=== PATIENT | male | born 1945 | race Caucasian/White ===

== ENCOUNTER 2018-03-08 10:13 | Inpatient (IN) | payer MEDICAID ==
[~2018-03-08] VITALS: Ht 167.6 cm; Wt 75.0 kg
[2018-03-08] MEDS ORDERED: ONDANSETRON 4 MG INJ IV STA (10:41)
[2018-03-08] MEDS ORDERED: VANCOMYCIN 1 GM (PMX) 250 ML IVPB STA (10:41)
[2018-03-08] MEDS ORDERED: SODIUM CHLORIDE 0.9% 1L BAG IV* STA (10:41)
[2018-03-08] MEDS ORDERED: PIPER-TAZO 3.375 GM IV (PMX) 100 ML IVPB STA (10:41)
[2018-03-08] MEDS ORDERED: morphine 4 MG/ML VIAL IV STA (10:41)
--- NOTE | 2018-03-08 13:12 | ERD ---
ER Documentation Chief Complaint Chief Complaint cough, ap few days HPI Patient is a 72-year-old male with hypertension who presents with foot infection. The patient has a wound to his right foot on the dorsum which started on Tuesday. It started as a blister from his shoe but has gotten worse. It is now draining pus. He also developed abdominal pain recently. He has had a fever of 101 at home. He has had no recent antibiotics. Upon review of old medical records this is the patient's first visit to the emergency department. ROS All systems reviewed and are negative except as per history of present illness. Medications Home Meds No Active Prescriptions or Reported Meds Allergies Allergies: Coded Allergies: No Known Allergy (Unverified , 03/08/18) PMhx/Soc Medical and Surgical Hx: pt denies Surgical Hx History of Surgery: No Anesthesia Reaction: No Hx Neurological Disorder: No Hx Respiratory Disorders: No Hx Cardiac Disorders: Yes (HTN) Hx Psychiatric Problems: No Hx Miscellaneous Medical Probl: No Hx Alcohol Use: Yes Hx Substance Use: No Hx Tobacco Use: No Smoking Status: Never smoker FmHx Family History: No diabetes Physical Exam Vitals Vital Signs Date Temp Pulse Resp B/P (MAP) Pulse Ox O2 O2 Flow FiO2 Time Delivery Rate 03/08/18 67 18 158/103 100 Room Air 12:56 (121) 03/08/18 98.1 97 18 157/99 99 10:15 (118) Physical Exam Const: No acute distress Head: Atraumatic Eyes: Normal Conjunctiva ENT: Normal External Ears, Nose and Mouth. Neck: Full range of motion. No meningismus. Resp: Clear to auscultation bilaterally Cardio: Regular rate and rhythm, no murmurs Abd: Soft, non tender, non distended. Normal bowel sounds Skin: 2 x 2 centimeter abscess to the right dorsum of the foot with surrounding cellulitis, the wound is already open and draining Back: No midline or flank tenderness Ext: No cyanosis, or edema Neur: Awake and alert Psych: Normal Mood and Affect Result Diagram: 03/08/18 1104 03/08/18 1104 Results 24 hrs Laboratory Tests Test 03/08/18 11:01 03/08/18 11:04 03/08/18 13:10 POC Venous Lactate 1.6 mmol/L 1.3 mmol/L White Blood Count 5.9 10^3/ul Red Blood Count 5.64 10^6/ul Hemoglobin 10.6 g/dl Hematocrit 34.5 % Mean Corpuscular Volume 61.2 fl Mean Corpuscular Hemoglobin 18.8 pg Mean Corpuscular Hemoglobin Concent 30.7 g/dl Red Cell Distribution Width 16.2 % Platelet Count 322 10^3/UL Mean Platelet Volume 10.3 fl Immature Granulocytes % 0.500 % Neutrophils % 46.8 % Lymphocytes % 24.6 % Monocytes % 17.5 % Eosinophils % 9.8 % Basophils % 0.8 % Nucleated Red Blood Cells % 0.0 /100WBC Immature Granulocytes # 0.030 10^3/ul Neutrophils # 2.8 10^3/ul Lymphocytes # 1.5 10^3/ul Monocytes # 1.0 10^3/ul Eosinophils # 0.6 10^3/ul Basophils # 0.1 10^3/ul Nucleated Red Blood Cells # 0.0 10^3/ul Prothrombin Time 13.3 Sec Prothrombin Time Ratio 1.0 INR International Normalized Ratio 1.00 Activated Partial Thromboplast Time 31.0 Sec Urine Color YELLOW Urine Clarity CLEAR Urine pH 6.0 Urine Specific Cook 1.012 Urine Ketones NEGATIVE mg/dL Urine Nitrite NEGATIVE mg/dL Urine Bilirubin NEGATIVE mg/dL Urine Urobilinogen NEGATIVE mg/dL Urine Leukocyte Esterase NEGATIVE [place]/ul Urine Microscopic RBC 0 /HPF Urine Microscopic WBC 0 /HPF Urine Hemoglobin NEGATIVE mg/dL Urine Glucose NEGATIVE mg/dL Urine Total Protein 2+ mg/dl Sodium Level 138 mmol/L Potassium Level 3.9 mmol/L Chloride Level 105 mmol/L Carbon Dioxide Level 24 mmol/L Anion Gap 9 Blood Urea Nitrogen 22 mg/dl Creatinine 1.94 mg/dl Est Glomerular Filtrat Rate mL/min mL/min Glucose Level 92 mg/dl Calcium Level 8.3 mg/dl Total Bilirubin 0.1 mg/dl Direct Bilirubin 0.00 mg/dl Indirect Bilirubin 0.1 mg/dl Aspartate Amino Transf (AST/SGOT) 31 IU/L Alanine Aminotransferase (ALT/SGPT) 26 IU/L Alkaline Phosphatase 72 IU/L Troponin I < 0.012 ng/ml Total Protein 6.8 g/dl Albumin 3.7 g/dl Globulin 3.10 g/dl Albumin/Globulin Ratio 1.19 Lipase 124 U/L Current Medications Medications Dose Sig/Lee Start Time Status Last (Trade) Ordered Route PRN Stop Time Admin Dose Reason Admin Sodium 2,050 ml BOLUS OVER 2 03/08/18 DC 03/08/18 Chloride HOURS STAT 10:41 03/08/18 11:18 (NS) IV* 10:42 Morphine 4 mg ONCE STAT 03/08/18 DC Sulfate IV 10:41 03/08/18 (morphine) 10:42 Ondansetron 4 mg ONCE STAT 03/08/18 DC 03/08/18 HCl (Zofran IV 10:41 03/08/18 11:18 Inj) 10:42 Vancomycin 250 ml @ ONCE STAT 03/08/18 DC 03/08/18 HCl 125 mls/hr IVPB 10:41 03/08/18 12:22 12:40 Piperacillin 100 ml @ ONCE STAT 03/08/18 DC 03/08/18 Sod/ 200 mls/hr IVPB 10:41 03/08/18 11:18 Tazobactam 11:10 Sod Ondansetron 4 mg BRIDGE ORDER 03/08/18 HCl (Zofran PRN IV 13:30 Inj) NAUSEA AND/OR 03/09/18 13:29 VOMITING 650 mg ER BRIDGE 03/08/18 Acetaminophen PRN PO MILD 13:30 (Tylenol PAIN(1-3)OR 03/09/18 13:29 Tab) ELEVATED TEMP Procedures/MDM Chest x-ray read by radiology. EKG read by me: Rate/Rhythm: Regular rate and rhythm at a normal rate Intervals: Normal Impression: No evidence of ischemia or arrhythmia Patient is a 72-year-old male who presents with a right foot infection. There is abscess which has already opened and is draining and does not require incision and drainage at this time. The patient has surrounding erythema and was given vancomycin and Zosyn. The patient will be admitted to the care of Dr. Elizabeth from the panel team to a medical surgical bed. Departure Diagnosis: Primary Impression: Cellulitis Site of cellulitis: extremity Site of cellulitis of extremity: lower extremity Laterality: right Qualified Codes: L03.115 - Cellulitis of right lower limb Additional Impression: Abdominal abscess Condition: AMERICA Morales MD Mar 08, 2018 13:12
[2018-03-08] MEDS ORDERED: ONDANSETRON 4 MG INJ IV PRN ×3 (13:30→17:00)
[2018-03-08] MEDS ORDERED: ACETAMINOPHEN 325 MG TAB PO PRN ×2 (13:30→17:00)
[2018-03-08] MEDS ORDERED: NACL 0.9% 3 ML SYG IV SCH ×2 (15:30→17:00)
[2018-03-08] MEDS ORDERED: HYDROCODONE/APAP (5/325) TAB PO PRN ×2 (15:30→17:00)
[2018-03-08] MEDS ORDERED: LABETALOL 100 MG TAB PO ONE (16:30)
[2018-03-08] MEDS: SOD CHLORIDE 0.9% 1,000 ML IV SCH (16:51)
--- NOTE | 2018-03-08 17:10 | HP ---
Date/Time of Note Date/Time of Note DATE: 03/08/18 TIME: 16:55 Assessment/Plan VTE Prophylaxis SCD applied (from Nsg): Yes Pharmacological prophylaxis: NA/contraindicated Pharm contraindication: low risk/ambulating Lines/Catheters IV Catheter Type (from Nrsg): Peripheral IV Assessment/Plan Assessment/Plan 72 yo man history of HTN presents with R foot ulcer, fever, and CHF symptoms. #Foot ulcer #Sepsis - Surrounding skin appears clean. However this is likely source of fevers. - Will start zosyn IV for now - Blood cultures. will f/u - Podiatry consulted - Admit to med/surg #HTN - Unknown home meds. - Will start beta tay for now (No ACEi in case of WES, CCB will take too long) #Renal failure - Unknown if WES or CKD - Will check renal ultrasound - Will trend levels tomorrow. #CHF - Reports paroxysmal nocturnal dyspnea. Vascular congestion on CXR - May be from longstanding HTN - Will get TTE. DVT: SCDs GI: None Result Diagram: 03/08/18 1104 03/08/18 1104 HPI/ROS Admit Date/Time Admit Date/Time Mar 08, 2018 Hx of Present Illness Mr. Walker is a 72 yo [place]-speaking man with history of HTN who presents with fever and foot ulcer. History taken from son at bedside. Also present was his daughter in law and non- Mohawk speaking . He was in his usual state of health until about 3-4 days ago when he developed a R foot blister. This gradually enlarged and ruptured creating a large open wound yesterday. He first presented to an urgent care yesterday where he was found to have a fever to 101. He was instructed to go to the ED, but was reluctant because he doesn't like hospitals. His son talked him into coming today. The patient recently traveled to the [facility] region in [facility] where visited family. [place]. He was there for 2 months and returned on 02/21. On return he had mild leg edema which family attributed to the long plane flight; during this time family is sure there was no blister, ulcer, or other lesions on the feet. For the past several days the patient also has had dry cough and episodes of nighttime awakening and gasping for breath. In the ED he was afebrile, vital signs stable. ROS Denies weight loss, anorexia, night sweats, headache, vision changes, dysphagia, hoarseness, productive cough, hemoptysis, MANNING, chest pain/pressure/palpitations, nausea, vomiting, diarrhea, constipation, dysuria, hematuria, muscle cramping. PMH/Family/Social Past Medical History HTN. Takes a single daily medication, unknown name. Medications Current Medications Sodium Chloride 1,000 ml @ 100 mls/hr Q10H IV Last administered on 03/08/18at 16:51; Admin Dose 100 MLS/HR; Start 03/08/18 at 15:20 IV Flush (NS 3 ml) 3 ml PER PROTOCOL IV ; Start 03/08/18 at 15:30 Ondansetron HCl (Zofran Inj) 4 mg Q6H PRN IV NAUSEA AND/OR VOMITING; Start 03/08/18 at 15:30 Acetaminophen (Tylenol Tab) 650 mg Q6H PRN PO PAIN LEVEL 1-3 OR FEVER; Start 03/08/18 at 15:30 Acetaminophen/ Hydrocodone Bitart ([place] (5/325)) 1 tab Q6H PRN PO MODERATE PAIN LEVEL 4-6; Start 03/08/18 at 15:30 Heparin Sodium (Porcine) (Heparin (5000 Units/1ml)) 5,000 unit Q8 SC ; Start 03/08/18 at 22:00 Piperacillin Sod/ Tazobactam Sod 100 ml @ 200 mls/hr Q8 IVPB ; Start 03/08/18 at 17:00 Coded Allergies: No Known Allergy (Unverified , 03/08/18) Past Surgical History Denies Social History Patient is a citizen and lives in [place]. He is Sikhism; [place] speaking. Vegetarian only. Alcohol Use: none Smoking Status: Never smoker Drug Use: none Exam/Review of Systems Vital Signs Vitals Vital Signs Date Temp Pulse Resp B/P (MAP) Pulse Ox O2 O2 Flow FiO2 Time Delivery Rate 03/08/18 79 169/117 100 Room Air 15:43 (134) 03/08/18 18 12:56 03/08/18 98.1 10:15 Exam Exam Gen: Well developed elderly man in no acute distress. Eyes: PEERL, no icterus HEENT: Clear oropharynx, no ulcers, moist mucous membranes Neck: No JVD. No Lymphadenopathy Card: Regular rate and rhythm, no murmurs Pulm: Clear to auscultation bilaterally. Abd: Soft, nontender, nondistended. Ext: No edema. Skin: R foot has a deep ulcer on the dorsum packed with gauze. Edges appear clean. EDITH ASHRAF MD Mar 08, 2018 17:05
[2018-03-08 18:00] VITALS: Ht 167.6 cm; Wt 75.0 kg
[2018-03-08] MEDS: PIPER-TAZO 3.375 GM IV (PMX) 100 ML IVPB SCH ×2 (18:15→22:00)
[2018-03-08] MEDS ORDERED: LIDOCAINE 1% (MPF) 30 ML INJ INJ ONE (18:30)
[2018-03-08 19:49] VITALS: BP 128/78; PULSE 83; RESP 18
[2018-03-08] MEDS: HEPARIN 5,000 UNIT/1 ML VIAL SC SCH (21:57)
[2018-03-09] MEDS: SOD CHLORIDE 0.9% 1,000 ML IV SCH ×2 (01:45→11:44)
[2018-03-09 02:00] VITALS: BP 155/87; PULSE 63; RESP 18
[2018-03-09] MEDS: HEPARIN 5,000 UNIT/1 ML VIAL SC SCH ×3 (05:21→21:48)
[2018-03-09] MEDS: PIPER-TAZO 3.375 GM IV (PMX) 100 ML IVPB SCH ×3 (05:22→21:28)
[2018-03-09 07:18] VITALS: BP 160/94; PULSE 70; RESP 16
[2018-03-09] MEDS ORDERED: ENOXAPARIN 40 MG/0.4 ML SYG SC SCH (09:00)
[2018-03-09] MEDS: LABETALOL 100 MG TAB PO SCH ×2 (11:41→20:05)
--- NOTE | 2018-03-09 13:06 | CONS ---
DATE OF ADMISSION: 03/08/2018 DATE OF CONSULTATION: 03/09/2018 TYPE OF CONSULTATION: Nephrology. REASON FOR CONSULTATION: Acute kidney injury. HISTORY OF PRESENT ILLNESS: This is a 72-year-old male with a past medical history of hypertension w ho presents to [facility] due to right foot wound. The patient stated that he deve loped a blister in his right foot but over the past several days started draining pus. The patient a lso complained of abdominal pain. At home, the patient had a fever of 101. As a result, he came int o the emergency room for evaluation. Upon arrival, the patient had laboratory data drawn, which show ed a white count of 5.9, BUN of 12 and creatinine of 1.94. The patient was started on IV antibiotics and admitted to med/surg for further evaluation and wound care. In terms of patient's renal history, the patient denies having any prior history of chronic kidney di sease, acute kidney injury. The patient has not seen a physician in a long time per family. The pat ient does take not blood pressure medications. No other medications including NSAIDs per patient. PAST MEDICAL HISTORY: History of hypertension. SOCIAL HISTORY: Does not drink, smoke or do drugs. MEDICATIONS: Have been reviewed. PAST SURGICAL HISTORY: Denies. FAMILY HISTORY: No family history of kidney disease. ALLERGIES: NONE. REVIEW OF SYSTEMS: A 14-point review of systems conducted. Pertinent positives stated in HPI, other arrieta negative. PHYSICAL EXAMINATION: VITAL SIGNS: Blood pressure is 160/94, respirations 16, pulse 70, temperature 98.1. HEENT: Head is normocephalic. NECK: Supple. HEART: Regular rate. LUNGS: Show diminished breath sounds at the base. ABDOMEN: Soft, nontender to palpation without rebound or guarding. EXTREMITIES: Negative for clubbing, cyanosis. No edema. MUSCULOSKELETAL: The patient has noted right foot deep ulcer in the dorsum with gauze. NEUROLOGIC: No focal deficits. LABORATORY DATA: Show sodium 142, BUN 19, creatinine 1.83. White count 5.7, hemoglobin 9.3. The pa lili's cultures have been reviewed. IMAGING STUDIES: Renal ultrasound shows severe right-sided hydronephrosis and cortical thinning, non -obstructing calculi in left kidney and increased echogenicity in the cortex of the left kidney. ASSESSMENT AND PLAN: This is a 72-year-old male who presents with: 1. Nonoliguric acute kidney injury on top of chronic kidney disease with unknown baseline creatinine . Etiology of acute kidney injury is likely secondary to obstructive uropathy. The patient's renal ultrasound shows severe right-sided hydronephrosis with unclear etiology. Plan at this point would b e to check a CT scan of abdomen and pelvis with stone protocol. We would recommend a urologic evalua tion. We will deescalate IV fluids as this patient is volume replete in clinical examination. We wi ll otherwise continue current treatment plan, supportive care, renally dose all meds. 2. Chronic kidney disease with unknown baseline creatinine. The patient's renal ultrasound shows in creased echogenicity. Underlying cause may be due to longstanding obstructive uropathy, hypertensive nephrosclerosis. The patient is currently in acute kidney injury as stated above. Continue current treatment plan. Otherwise, continue disease factor modification. 3. Right-sided hydronephrosis. Etiology is unclear. Follow up CT scan. Follow up with urology. 4. Hypertension. Plan to deescalate IV fluids. Continue blood pressure regimen. Defer any JOE inh ibitor or ARBs at this time. 5. Pulmonary vascular congestion, questionable congestive heart failure. Plan is to stop IV fluids. Consider 2D echo. Monitor closely. 6. Sepsis secondary to right foot ulcer. Continue antibiotic regimen. Continue wound care. Follow up cultures. Thank you, Dr. Elizabeth, for this interesting consult. It will be a pleasure to follow the patient with you throughout the hospital course. Dictated By: MIYA DOBBS/JOSEFINA Conf#: [id number] DID#: [id number] CC: MARIE RAMIREZ DPM; EDITH ELIZABETH MD;*End*
--- NOTE | 2018-03-09 14:20 | RADRPT ---
Echocardiogram Report Patient Name: CARON WU Gender: Male Date: 1945 Study Date: 09-Mar-2018 Elderly Sitter: Frandy Rosales [facility] Location: 2268 Ref. Physician: EDITH ASHRAF Quality: Good Procedures: Transthoracic echocardiogram with complete 2D, M-Mode, and doppler examination. Indications: PND, cardiomegaly on CXR. 2D/M Mode Doppler Measurement Value Normal Ranges Measurement Value Normal Ranges LVIDd 2D 4.3 3.5 - 5.6 cm AV Peak Alvaro 1.6 m/sec LVIDs 2D 2.8 2.1 - 4.1 cm AV Peak PG 11.0 mmHg FS 2D 34.3 % AI Peak PG 97.0 mmHg LVPWd 2D 1.1 0.6 - 1.1 cm AI Peak Alvaro 4.9 m/sec IVSd 2D 1.5 0.6 - 1.1 cm AI PHT 548.0 msec IVS/LVPW 2D 1.4 LVOT Peak Alvaro 1.2 m/sec AoR Diam 2D 3.4 2.0 - 3.7 cm LVOT Peak PG 6.0 mmHg LA/Ao 2D 1 0 - 1 MV E Peak Alvaro 0.8 m/sec EDV 2D 81.7 cm3 MV A Peak Alvaro 0.9 m/sec ESV 2D 23.1 cm3 MV E/A 0.9 LA Dimen 2D 4.1 2.3 - 4.0 cm MV Decel Time 204 msec MV E/A 0.9 TR Peak Alvaro 3.5 m/sec TR Peak PG 48.0 mmHg RVSP 51.0 mmHg RA Pressure 3.0 Findings Left Ventricle: Normal left ventricular systolic function. Normal left ventricular cavity size. Moderate asymmetric septal hypertrophy. Ejection fraction is visually estimated at 65 %. Tissue Doppler/Mitral Doppler indices are consistent with impaired relaxation (Stage I diastolic dysfunction). Right Ventricle: Normal right ventricular size. Normal right ventricular systolic function. Left Atrium: There is mild enlargement of left atrium. Right Atrium: The right atrium is normal in size. Mitral Valve: Normal appearance and function of the mitral valve with trace physiologic regurgitation. Aortic Valve: No hemodynamically significant aortic stenosis by doppler. Aortic cusps appear mildly calcified. Mild aortic valve regurgitation. Tricuspid Valve: Normal appearance of the tricuspid valve. Estimated peak PA systolic pressure 51 mmHg. There is mild tricuspid regurgitation. Pulmonic Valve: Normal pulmonic valve appearance. Pericardium: Normal pericardium with no significant pericardial effusion. Aorta: Normal aortic root. IVC: Normal size and normal respiratory collapse consistent with normal right atrial pressure. Conclusions Basal septal hypertrophy with normal systolic function. Grade 1 diastolic dysfunction. Trace aortic regurgitation. Mild tricuspid regurgitation with moderate pulmonary hypertension. Trace mitral regurgitation. Electronically Signed By: Katiuska Cintron 09-Mar-2018 14:18:38 -0800 Patient Name: CARON WU Study Date: 09-Mar-2018 [id number]
--- NOTE | 2018-03-09 14:23 | PN ---
Date/Time of Note Date/Time of Note DATE: 03/09/18 TIME: 14:19 Assessment/Plan VTE Prophylaxis Risk score (from Ns)>0 risk: 2 SCD applied (from Ns): Yes Pharmacological prophylaxis: heparin Lines/Catheters IV Catheter Type (from Nrs): Peripheral IV Assessment/Plan Assessment/Plan 72 yo man history of HTN presents with R foot ulcer, fever, and CHF symptoms. #Foot ulcer #Sepsis - Cont zosyn IV for now - Blood cultures, will f/u - Podiatry consulted, s/p I&D on 03/09, will f/u wound cultures. #HTN - Unknown home meds. - Will start beta tay and CCB inpatient. #Obstructive uropathy - Cr elevated, imaging shows severe R hydronephrosis from obstructing stone. - Consulted Dr. Haas with urology. #CHF - Reports paroxysmal nocturnal dyspnea. Vascular congestion on CXR - May be from longstanding HTN - TTE pending read. DVT: SCDs GI: None Result Diagram: 03/09/1838 03/09/1838 Results 24hrs Laboratory Tests Test 03/08/18 15:33 03/09/18 05:38 Hemoglobin A1c 5.8 5.6 Lactic Acid Level 1.1 Iron Level 30 L Total Iron Binding Capacity 267 Percent Iron Saturation 11 L Ferritin 60.0 B-Type Natriuretic Peptide 184 H White Blood Count 5.7 Red Blood Count 4.91 Hemoglobin 9.3 L Hematocrit 30.1 L Mean Corpuscular Volume 61.3 L Mean Corpuscular Hemoglobin 18.9 L Mean Corpuscular Hemoglobin Concent 30.9 L Red Cell Distribution Width 16.6 H Platelet Count 304 Mean Platelet Volume 11.0 H Immature Granulocytes % 0.500 H Neutrophils % 56.0 Lymphocytes % 23.4 Monocytes % 9.1 Eosinophils % 10.1 H Basophils % 0.9 Nucleated Red Blood Cells % 0.0 Immature Granulocytes # 0.030 Neutrophils # 3.2 Lymphocytes # 1.3 Monocytes # 0.5 Eosinophils # 0.6 H Basophils # 0.1 Nucleated Red Blood Cells # 0.0 Sodium Level 142 Potassium Level 4.4 Chloride Level 110 Carbon Dioxide Level 22 Anion Gap 10 Blood Urea Nitrogen 19 Creatinine 1.83 H Est Glomerular Filtrat Rate mL/min Glucose Level 88 Calcium Level 7.4 L Phosphorus Level 4.1 Magnesium Level 1.8 Total Bilirubin 0.1 L Direct Bilirubin 0.00 Indirect Bilirubin 0.1 Aspartate Amino Transf (AST/SGOT) 25 Alanine Aminotransferase (ALT/SGPT) 23 Alkaline Phosphatase 55 Total Protein 5.7 #L Albumin 2.9 L Globulin 2.80 Albumin/Globulin Ratio 1.03 Subjective 24 Hr Interval Summary Free Text/Dictation Dr Coronado did I&D of ulcer yesterday. Patient is sitting up in bed well appearing. Ambulating, tolerating diet. Exam/Review of Systems Vital Signs Vitals Vital Signs Date Temp Pulse Resp B/P (MAP) Pulse Ox O2 O2 Flow FiO2 Time Delivery Rate 03/09/18 98.1 70 16 160/94 97 Room Air 07:18 (116) Intake and Output 03/08/18 03/08/18 03/09/18 1515:00 23:00 07:00 IntakeIntake Total 890 ml 1500 ml OutputOutput Total 120 ml BalanceBalance 770 ml 1500 ml Exam Gen: Well developed elderly man in no acute distress. Eyes: PEERL, no icterus HEENT: Clear oropharynx, no ulcers, moist mucous membranes Neck: No JVD. No Lymphadenopathy Card: Regular rate and rhythm, no murmurs Pulm: Clear to auscultation bilaterally. Abd: Soft, nontender, nondistended. Ext: No edema. Skin: R foot bandaged. Medications Medications Current Medications IV Flush (NS 3 ml) 3 ml PER PROTOCOL IV ; Start 03/08/18 at 15:30 Ondansetron HCl (Zofran Inj) 4 mg Q6H PRN IV NAUSEA AND/OR VOMITING; Start 03/08/18 at 15:30 Acetaminophen (Tylenol Tab) 650 mg Q6H PRN PO PAIN LEVEL 1-3 OR FEVER; Start 03/08/18 at 15:30 Acetaminophen/ Hydrocodone Bitart ([place] (5/325)) 1 tab Q6H PRN PO MODERATE PAIN LEVEL 4-6; Start 03/08/18 at 15:30 Heparin Sodium (Porcine) (Heparin (5000 Units/1ml)) 5,000 unit Q8 SC Last administered on 03/09/18at 05:21; Admin Dose 5,000 UNIT; Start 03/08/18 at 22:00 Labetalol HCl (Normodyne) 100 mg BID PO Last administered on 03/09/18at 11:41; Admin Dose 100 MG; Start 03/09/18 at 08:00 Piperacillin Sod/ Tazobactam Sod 100 ml @ 200 mls/hr Q8 IVPB Last administered on 03/09/18at 05:22; Admin Dose 200 MLS/HR; Start 03/09/18 at 06:00 EDITH ASHRAF MD Mar 09, 2018 14:23
[2018-03-09 14:50] VITALS: BP 155/88; PULSE 70; RESP 17
[2018-03-09] MEDS: AMLODIPINE 10 MG TAB PO SCH (14:51)
[2018-03-09 19:17] VITALS: BP 157/98; PULSE 82; RESP 18
--- NOTE | 2018-03-09 20:34 | CONS ---
Date/Time of Note Date/Time of Note DATE: 03/09/18 TIME: 20:27 Assessment/Plan Assessment/Plan Assessment/Plan 72-year-old male presented to the emergency room with abdominal pain and foot blister. He underwent a CT scan of the abdomen and pelvis and that showed right hydronephrosis secondary to a large upper right ureteral stone. A urological consultation was therefore requested. The patient himself does not speak any Latvian. However his nurse for elizabeth does speak his language and she helps translate. He denies any prior history of kidney stones and has not had any surgical intervention before. I did review the CT scan and basically the right kidney is hydronephrotic and has very little if any parenchyma indicating that it has been obstructed for a long time by the stone and probably has no function to save. Recommendation is to leave the kidney alone as well as a stone as the kidney has very little if any function. Result Diagram: 03/09/18 0538 03/09/18 0538 Results 24hrs Laboratory Tests Test 03/09/18 05:38 03/09/18 17:00 White Blood Count 5.7 Red Blood Count 4.91 Hemoglobin 9.3 L Hematocrit 30.1 L Mean Corpuscular Volume 61.3 L Mean Corpuscular Hemoglobin 18.9 L Mean Corpuscular Hemoglobin Concent 30.9 L Red Cell Distribution Width 16.6 H Platelet Count 304 Mean Platelet Volume 11.0 H Immature Granulocytes % 0.500 H Neutrophils % 56.0 Lymphocytes % 23.4 Monocytes % 9.1 Eosinophils % 10.1 H Basophils % 0.9 Nucleated Red Blood Cells % 0.0 Immature Granulocytes # 0.030 Neutrophils # 3.2 Lymphocytes # 1.3 Monocytes # 0.5 Eosinophils # 0.6 H Basophils # 0.1 Nucleated Red Blood Cells # 0.0 Sodium Level 142 Potassium Level 4.4 Chloride Level 110 Carbon Dioxide Level 22 Anion Gap 10 Blood Urea Nitrogen 19 Creatinine 1.83 H Est Glomerular Filtrat Rate mL/min Glucose Level 88 Hemoglobin A1c 5.6 Calcium Level 7.4 L Phosphorus Level 4.1 Magnesium Level 1.8 Total Bilirubin 0.1 L Direct Bilirubin 0.00 Indirect Bilirubin 0.1 Aspartate Amino Transf (AST/SGOT) 25 Alanine Aminotransferase (ALT/SGPT) 23 Alkaline Phosphatase 55 Total Protein 5.7 #L Albumin 2.9 L Globulin 2.80 Albumin/Globulin Ratio 1.03 Urine Random Creatinine 41.08 Urine Random Sodium 129 H Urine Total Protein 34.0 H Consultation Date/Type/Reason Admit Date/Time Mar 08, 2018 Date of Consultation: Mar 09, 2018 Type of Consult Urology Reason for Consultation Right hydronephrosis secondary to right upper ureteral stone. Requesting Provider: EDITH ASHRAF MD Hx of Present Illness 72-year-old male presented to the emergency room with abdominal pain and foot blister. He underwent a CT scan of the abdomen and pelvis and that showed right hydronephrosis secondary to a large upper right ureteral stone. A urological consultation was therefore requested. Constitutional: other (History of fever prior to admission) Eyes: no complaints ENT: no complaints Respiratory: no complaints Cardiovascular: No chest pain Gastrointestinal: pain (Generalized) Genitourinary: no complaints Musculoskeletal: no complaints Skin: other (Lower extremity blisters) Past Medical History Medical History: hypertension Medications Current Medications IV Flush (NS 3 ml) 3 ml PER PROTOCOL IV ; Start 03/08/18 at 15:30 Ondansetron HCl (Zofran Inj) 4 mg Q6H PRN IV NAUSEA AND/OR VOMITING; Start 03/08/18 at 15:30 Acetaminophen (Tylenol Tab) 650 mg Q6H PRN PO PAIN LEVEL 1-3 OR FEVER; Start 03/08/18 at 15:30 Acetaminophen/ Hydrocodone Bitart ([place] (5/325)) 1 tab Q6H PRN PO MODERATE PAIN LEVEL 4-6; Start 03/08/18 at 15:30 Heparin Sodium (Porcine) (Heparin (5000 Units/1ml)) 5,000 unit Q8 SC Last administered on 03/09/18at 14:41; Admin Dose 5,000 UNIT; Start 03/08/18 at 22:00 Labetalol HCl (Normodyne) 100 mg BID PO Last administered on 03/09/18at 20:05; Admin Dose 100 MG; Start 03/09/18 at 08:00 Piperacillin Sod/ Tazobactam Sod 100 ml @ 200 mls/hr Q8 IVPB Last administered on 03/09/18at 14:28; Admin Dose 200 MLS/HR; Start 03/09/18 at 06:00 Amlodipine Besylate (Norvasc) 10 mg DAILY PO Last administered on 03/09/18at 14:51; Admin Dose 10 MG; Start 03/09/18 at 14:30 Allergies: Coded Allergies: No Known Allergy (Unverified , 03/08/18) Social History Alcohol Use: other (Used to drink) Smoking Status: Never smoker Drug Use: none Exam/Review of Systems Vital Signs Vitals Vital Signs Date Temp Pulse Resp B/P (MAP) Pulse Ox O2 O2 Flow FiO2 Time Delivery Rate 03/09/18 98.1 82 18 157/98 99 19:17 (117) 03/09/18 Room Air 14:50 Intake and Output 03/08/18 03/08/18 03/09/18 1515:00 23:00 07:00 IntakeIntake Total 890 ml 1500 ml OutputOutput Total 120 ml BalanceBalance 770 ml 1500 ml Exam Constitutional: alert Psych: no complaints Head: normocephalic Eyes: nl conjunctiva ENMT: nl external ears & nose Neck: supple Respiratory: normal air movement Cardiovascular: No jugular venous distention (JVD) Gastrointestinal: soft, non-tender Genitourinary - Male: nl penis, nl scrotum Extremities: No calf tenderness Medications Medications Current Medications IV Flush (NS 3 ml) 3 ml PER PROTOCOL IV ; Start 03/08/18 at 15:30 Ondansetron HCl (Zofran Inj) 4 mg Q6H PRN IV NAUSEA AND/OR VOMITING; Start 03/08/18 at 15:30 Acetaminophen (Tylenol Tab) 650 mg Q6H PRN PO PAIN LEVEL 1-3 OR FEVER; Start 03/08/18 at 15:30 Acetaminophen/ Hydrocodone Bitart ([place] (5/325)) 1 tab Q6H PRN PO MODERATE PAIN LEVEL 4-6; Start 03/08/18 at 15:30 Heparin Sodium (Porcine) (Heparin (5000 Units/1ml)) 5,000 unit Q8 SC Last ad ministered on 03/09/18at 14:41; Admin Dose 5,000 UNIT; Start 03/08/18 at 22:00 Labetalol HCl (Normodyne) 100 mg BID PO Last administered on 03/09/18at 20:05; Admin Dose 100 MG; Start 03/09/18 at 08:00 Piperacillin Sod/ Tazobactam Sod 100 ml @ 200 mls/hr Q8 IVPB Last administered on 03/09/18at 14:28; Admin Dose 200 MLS/HR; Start 03/09/18 at 06:00 Amlodipine Besylate (Norvasc) 10 mg DAILY PO Last administered on 03/09/18at 14:51; Admin Dose 10 MG; Start 03/09/18 at 14:[address] scan of the abdomen and pelvis: 1. Obstructive large 1.6 cm stone in the right upper ureter resulting in severe most likely chronic hydronephrosis. 2. Additional stones in the linear pattern seen just proximal to the right ureter obstructive stone. 3. Punctated nonobstructive stones of the left kidney with no hydronephrosis. MEL DAVID MD Mar 09, 2018 20:34
[2018-03-10 01:36] VITALS: BP 142/92; PULSE 68; RESP 18
[2018-03-10] MEDS: PIPER-TAZO 3.375 GM IV (PMX) 100 ML IVPB SCH ×3 (05:06→21:50)
[2018-03-10] MEDS: HEPARIN 5,000 UNIT/1 ML VIAL SC SCH ×2 (05:12→15:05)
[2018-03-10 07:12] VITALS: BP 165/96; PULSE 72
[2018-03-10] MEDS: AMLODIPINE 10 MG TAB PO SCH (08:17)
[2018-03-10] MEDS: LABETALOL 100 MG TAB PO SCH ×2 (08:18→20:15)
--- NOTE | 2018-03-10 08:40 | PN ---
DATE: 03/10/2018 SUBJECTIVE: The patient is stable, no events overnight. OBJECTIVE: VITAL SIGNS: Blood pressure is 165/96, respirations 18, pulse 68, temperature 98.2. HEENT: Head is normocephalic. NECK: Supple. HEART: Regular rate. LUNGS: Show diminished breath sounds at the base. ABDOMEN: Soft, nontender to palpation without rebound or guarding. EXTREMITIES: Negative for clubbing, cyanosis, no edema. DERMATOLOGIC: No rashes. MUSCULOSKELETAL: The patient has noted wound with dressing clean, dry, intact. NEUROLOGIC: No change in exam. MEDICATIONS: Reviewed. LABORATORY DATA: Shows a BUN 14, creatinine 1.83. White count 6.0, hemoglobin 9.2, platelet count 3 09. IMAGING: The patient's CT scan shows evidence of obstructive large 1.6 cm stone in the right upper u reter, likely resulting in severe chronic hydronephrosis. ASSESSMENT AND PLAN: 1. Nonoliguric acute kidney injury on top of chronic kidney disease with unknown baseline creatinine . Etiology of acute kidney injury is likely secondary to hemodynamics, questionable component of obs tructive uropathy. The patient's renal function has improved and stabilized in the last 24 hours. A t this point, continue current treatment plans, supportive care, renally dose all medicines. 2. Chronic kidney disease likely secondary to chronic obstructive uropathy. The patient's CT scan s hows evidence of chronic right-sided hydronephrosis due to a nephroureterolithiasis. The patient was evaluated by Urology given minimal renal cortical parenchyma. On imaging studies, the patient likel y has had chronic obstruction with minimal right renal function. Per Urology, no plan for interventi on. We will therefore continue disease factor modification, monitor closely. 3. Hypertension. Continue current blood pressure regimen. We will consider starting JOE inhibitor or ARB if renal function remains stable. 4. Chronic right-sided hydronephrosis. Continue to monitor. 5. Pulmonary vascular congestion, congestive heart failure. The patient's fluids were discontinued. Continue to monitor. 6. Sepsis secondary to right foot ulcer. Continue antibiotic regimen. Dictated By: MIYA DOBBS/NTS Conf#: [id number] DID#: [id number] CC: MARIE RAMIREZ DPM; EDITH ASHRAF MD;*EndCC*
[2018-03-10] MEDS ORDERED: LOPERAMIDE 2 MG CAP PO PRN (12:00)
[2018-03-10 14:08] VITALS: BP 145/81; PULSE 73; RESP 17
--- NOTE | 2018-03-10 14:42 | CONS ---
DATE OF ADMISSION: 03/08/2018 DATE OF CONSULTATION: 03/08/2018 REASON FOR CONSULTATION: Right foot infection, abscess. HISTORY OF PRESENT ILLNESS: This 72-year-old gentleman admitted through the emergency room, has feve rs, chills, abscess formation and pain to the right foot. The patient has been initiated on vancomyc in and Zosyn. The patient had a blister infection for over week. He had been on a long flight from [place]. The patient is a horne. PAST MEDICAL HISTORY: Hypertension, history of acute renal failure, CHF. PAST SURGICAL HISTORY: Denies. SOCIAL HISTORY: Citizen was in the way. He is [place] speaking, vegetarian only. Denies any alcohol or illicit drug use. PHYSICAL EXAMINATION: VITAL SIGNS: Temperature is 98.5, pulse is 73, respiratory rate 17, blood pressure is 145/81, pulse ox is 100 on room air. GENERAL: The patient is awake, alert, oriented x4 and relates pain. HEENT: Extraocular motion is intact. LUNGS: Regular respiration. NECK: Trachea midline. EXTREMITIES: Right foot with cellulitis, abscess formation. There is bullae of approximately 3 x 4 cm. There is pain with palpation, purulent drainage. A 2+ DP, PT pulse. No decubitus changes. DIAGNOSTIC DATA: Foot x-rays revealed no acute fracture or dislocation, dorsal subcutaneous swelling without evidence of osseous involvement or osteomyelitis. LABORATORIES: WBC 5.9, hemoglobin 10.6, hematocrit 34.5, platelets 322. Sodium 141, potassium 4.2, chloride 111, BUN 14, creatinine is 1.83. ASSESSMENT: 1. Right foot cellulitis. 2. Right foot abscess. 3. Right foot pain. PLAN: H and P reviewed. I recommend incision and drainage. Informed consent was obtained. Procedu re was assisted by nurses. Sterile prep. Local anesthesia provided with lidocaine 1% plain. Using pickup scissors, 11-blade incision of abscess was performed. Estimated 10 mL of purulence was evacua annie. There is some evidence of subcutaneous necrosis. Wound was copiously irrigated with saline irr igation and covered with nonadherent 4 x 4 gauze and Kerlix. The patient tolerated procedure well. Specimen was sent for culture. Continue empiric antibiotics. Nursing recommendations were given. Dictated By: MARIE HINOJOSA/JOSEFINA Conf#: [id number] DID#: [id number] CC: EDITH ASHRAF MD;*[facility]*
--- NOTE | 2018-03-10 16:26 | PN ---
Date/Time of Note Date/Time of Note DATE: 03/10/18 TIME: 16:21 Assessment/Plan VTE Prophylaxis Risk score (from Ns)>0 risk: 2 [place] [facility] [place] contraindicated: low risk/ambulating Pharmacological prophylaxis: heparin Lines/Catheters IV Catheter Type [facility]from [facility] Saline Lock Assessment/Plan Assessment/Plan 72 yo man history of HTN presents with R foot ulcer, fever, and CHF symptoms. #Foot ulcer #Sepsis - Cont zosyn IV for now - Blood cultures NGTD - Podiatry consulted, s/p I&D on 03/09 - Wound cultures growing staph, will wait for final sensitivities. #HTN - Unknown home meds. - Will start beta tay and CCB inpatient. #Obstructive uropathy - Cr elevated, imaging shows severe R hydronephrosis from obstructing stone. - Appears that the damage has already been done to the R kidney... removing the stone is unlikely to improve function. - Educated family about CKD - No NSAIDs, renally dose all meds. #CHF - Reports paroxysmal nocturnal dyspnea. Vascular congestion on CXR - May be from longstanding HTN - TTE with EF 65%, diastolic dysfunction. DVT: SCDs GI: None Dispo: Anticipate discharge home tomorrow pending on culture results. Nursing to educate family on wound care and give some supplies. Result Diagram: 03/10/1842603/10/187 Results 24hrs Laboratory Tests Test 03/09/18 17:00 03/10/18 04:27 Urine Random Creatinine 42 Urine Random Sodium 129 H Urine Microalbumin 10.1 Urine Microalbumin/Creatinine Ratio 240 H Urine Total Protein 34.0 H White Blood Count 6.0 Red Blood Count 4.90 Hemoglobin 9.2 L Hematocrit 29.7 L Mean Corpuscular Volume 60.6 L Mean Corpuscular Hemoglobin 18.8 L Mean Corpuscular Hemoglobin Concent 31.0 L Red Cell Distribution Width 16.7 H Platelet Count 309 Mean Platelet Volume 10.5 H Immature Granulocytes % 0.300 Neutrophils % 55.4 Lymphocytes % 23.2 Monocytes % 7.8 Eosinophils % 12.1 H Basophils % 1.2 Nucleated Red Blood Cells % 0.0 Immature Granulocytes # 0.020 Neutrophils # 3.4 Lymphocytes # 1.4 Monocytes # 0.5 Eosinophils # 0.7 H Basophils # 0.1 Nucleated Red Blood Cells # 0.0 Sodium Level 141 Potassium Level 4.2 Chloride Level 111 H Carbon Dioxide Level 22 Anion Gap 8 Blood Urea Nitrogen 14 Creatinine 1.83 H Est Glomerular Filtrat Rate mL/min Glucose Level 88 Calcium Level 7.8 L Phosphorus Level 3.9 Magnesium Level 1.8 Total Bilirubin 0.2 Direct Bilirubin 0.00 Indirect Bilirubin 0.2 Aspartate Amino Transf (AST/SGOT) 26 Alanine Aminotransferase (ALT/SGPT) 26 Alkaline Phosphatase 60 Total Protein 5.7 L Albumin 3.0 L Globulin 2.70 Albumin/Globulin Ratio 1.11 Subjective 24 Hr Interval Summary Free Text/Dictation No acute overnight events. Patient feeling well. Ambulating on foot in courtyard with family today. Exam/Review of Systems Vital Signs Vitals Vital Signs Date Temp Pulse Resp B/P (MAP) Pulse Ox O2 O2 Flow FiO2 Time Delivery Rate 03/10/18 98.5 73 17 145/81 100 Room Air 14:08 (102) Intake and Output 03/09/18 03/09/18 03/10/18 1515:00 23:00 07:00 IntakeIntake Total 465 ml 220 ml 580 ml BalanceBalance 465 ml 220 ml 580 ml Exam Gen: Well developed elderly man in no acute distress. Eyes: PEERL, no icterus HEENT: Clear oropharynx, no ulcers, moist mucous membranes Neck: No JVD. No Lymphadenopathy Card: Regular rate and rhythm, no murmurs Pulm: Clear to auscultation bilaterally. Abd: Soft, nontender, nondistended. Ext: No edema. Skin: R foot bandaged. Medications Medications Current Medications IV Flush (NS 3 ml) 3 ml PER PROTOCOL IV ; Start 03/08/18 at 15:30 Ondansetron HCl (Zofran Inj) 4 mg Q6H PRN IV NAUSEA AND/OR VOMITING; Start 03/08/18 at 15:30 Acetaminophen (Tylenol Tab) 650 mg Q6H PRN PO PAIN LEVEL 1-3 OR FEVER; Start 03/08/18 at 15:30 Acetaminophen/ Hydrocodone Bitart ([place] (5/325)) 1 tab Q6H PRN PO MODERATE PAIN LEVEL 4-6; Start 03/08/18 at 15:30 Heparin Sodium (Porcine) (Heparin (5000 Units/1ml)) 5,000 unit Q8 SC Last administered on 03/10/18at 15:05; Admin Dose 5,000 UNIT; Start 03/08/18 at 22:00 Labetalol HCl (Normodyne) 100 mg BID PO Last administered on 03/10/18at 08:18; Admin Dose 100 MG; Start 03/09/18 at 08:00 Piperacillin Sod/ Tazobactam Sod 100 ml @ 200 mls/hr Q8 IVPB Last administered on 03/10/18at 15:07; Admin Dose 200 MLS/HR; Start 03/09/18 at 06:00 Amlodipine Besylate (Norvasc) 10 mg DAILY PO Last administered on 03/10/18at 08:17; Admin Dose 10 MG; Start 03/09/18 at 14:30 Loperamide HCl (Imodium Cap) 2 mg QID PRN PO DIARRHEA; Start 03/10/18 at 12:00 Mupirocin (Bactroban) 1 applic BID TOP ; Start 03/10/18 at 21:00 EDITH ASHRAF MD Mar 10, 2018 16:26
[2018-03-10 20:00] VITALS: BP 140/97; PULSE 77; RESP 16
--- NOTE | 2018-03-10 20:00 | CONS ---
DATE OF ADMISSION: 03/08/2018 DATE OF CONSULTATION: 03/10/2018 SUBJECTIVE: The patient is being followed for right foot ulceration abscess, status post incision an d drainage. The patient relates less pain. Denies fever, nausea and cultures are positive for Staph aureus. OBJECTIVE: VITAL SIGNS: Temperature 98.5, pulse 73, respiratory rate 17, blood pressure 145/81, pulse ox is 100 on room air. EXTREMITIES: Right foot decreased swelling. There is ulceration in dorsal aspect of right foot madiha uring approximately 1 x 4 cm. No signs of active bleeding. Redness, swelling is subsiding. No ivan luis. No tendon exposure. LABORATORIES: WBC 6, hemoglobin 9.2, hematocrit 28.7, platelets 309. ASSESSMENT: 1. Right foot cellulitis. 2. Right foot abscess, status post incision and drainage. 3. Right foot pain. PLAN: Additional nursing recommendations provided with irrigation, application of Bactroban ointment . I discussed followup as an outpatient. The patient is pending discharge tomorrow. We would juliane nue the antibiotics for 10 days coverage. Dictated By: MARIE RAMIREZ DPM RB/JOSEFINA Conf#: [id number] DID#: [id number] CC: EDITH ASHRAF MD;*End*
[2018-03-10] MEDS: SODIUM HYPOCHLORITE (1/40) 1 APPLIC BTL IRR SCH (20:13)
[2018-03-10] MEDS: MUPIROCIN 2% 22 GM OINT TOP SCH (20:16)
[2018-03-10] MEDS: ACETAMINOPHEN 325 MG TAB PO PRN (22:50)
[2018-03-11 01:48] VITALS: BP 152/85; PULSE 69; RESP 16
[2018-03-11] MEDS: PIPER-TAZO 3.375 GM IV (PMX) 100 ML IVPB SCH (05:42)
[2018-03-11 07:33] VITALS: BP 173/95; PULSE 63; RESP 18
--- NOTE | 2018-03-11 08:20 | PN ---
DATE: 03/11/2018 SUBJECTIVE: No events overnight. OBJECTIVE: VITAL SIGNS: Blood pressure is 173/95, respirations 18, pulse 63, temperature 98.1. HEENT: Head is normocephalic. NECK: Supple. HEART: Regular rate. LUNGS: Show diminished breath sounds at the base. ABDOMEN: Soft, nontender to palpation without rebound or guarding. EXTREMITIES: Negative for clubbing, cyanosis, no edema. DERMATOLOGIC: No rashes. MUSCULOSKELETAL: The patient has dressing over her lower extremity, clean, dry, and intact. DERMATOLOGIC: No rashes. MEDICATIONS: Reviewed. LABORATORY DATA: Shows white count 5.0, hemoglobin 9.6, platelet count 321. Sodium 139, BUN 11, cre atinine 1.76. ASSESSMENT AND PLAN: 1. Nonoliguric acute kidney injury on top of chronic kidney disease with unknown baseline creatinine . Etiology of acute kidney injury is secondary to hemodynamics. The patient's renal function appear s to have stabilized. Continue current treatment plan, supportive care and renally dose all medicine s. 2. Chronic kidney disease secondary to chronic obstructive uropathy. The patient's CT scan showed c hronic right-sided hydronephrosis secondary to ureterolithiasis. The patient is seen by urology, giv en the chronic nature of right-sided hydronephrosis and likely minimal right-sided renal function. N o plan for intervention per urology. We will continue to monitor. 3. Hypertension. Blood pressure remains elevated, we will consider starting JOE inhibitor or ARB on ce renal function stabilizes. This can be done in outpatient setting. 4. Pulmonary vascular congestion. The patient is clinically stable. No shortness of breath. Jenny nue to monitor. 5. Right foot ulcer. Continue current treatment plan. Dictated By: MIYA KNAPP DO NR/NTS Conf#: [id number] DID#: [id number] CC: EDITH ASHRAF MD; MARIE RAMIREZ DPM;*EndCC*
[2018-03-11] MEDS: ACETAMINOPHEN 325 MG TAB PO PRN (09:29)
[2018-03-11] MEDS: AMLODIPINE 10 MG TAB PO SCH (09:30)
[2018-03-11] MEDS: LABETALOL 100 MG TAB PO SCH (09:30)
[2018-03-11] MEDS: SODIUM HYPOCHLORITE (1/40) 1 APPLIC BTL IRR SCH (09:30)
[2018-03-11] MEDS: MUPIROCIN 2% 22 GM OINT TOP SCH (09:30)
[2018-03-11] MEDS ORDERED: ACET325T33 PO (10:16)
[2018-03-11] MEDS ORDERED: DOXY100T21 PO (10:16)
[2018-03-11] MEDS ORDERED: AMLO-147 PO (10:16)
--- NOTE | 2018-03-11 10:26 | PDOCDIS ---
Discharge Instructions DIAGNOSIS Discharge Diagnosis 1. R foot ulcer and cellulitis growing MRSA (sensitive to doxycycline) 2. CKD 3. HTN 4. Chronic R obstructive nephrolithiasis resulting in irreversible R hydr onephrosis CONDITION [id number] Patient Condition: [id number] Good HOME CARE INSTRUCTIONS: [id number] Diet Instructions: [id number] Reduced Sodium ACTIVITY: [id number] Activity Restrictions: [id number] No Restrictions FOLLOW UP/APPOINTMENTS Follow-up Plan 1. You have hypertension, which when uncontrolled increases risk of heart attack and stroke. Take amlodipine (Norvasc) daily as prescribed and see your primary care doctor in 1-2 weeks. 2. Take 10 days of doxycycline twice daily for MRSA infection of the foot. 3. You have chronic kidney disease (CKD) due to a chronic R kidney stone. You should avoid ibuprofen, naproxen, and other pain medicines called NSAIDs. Ask your primary care doctor before starting any new medicines or herbal supplements. 4. You should eat no more than 2g (2000 mg) of sodium per day. 5. For worsening abdominal pain not controlled by tylenol, return to the emergency room. EDITH ASHRAF MD Mar 11, 2018 10:26
--- NOTE | 2018-03-11 18:14 | DS ---
Date/Time of Note Date/Time of Note DATE: 03/11/18 TIME: 18:11 Discharge Summary Admission/Discharge Info Admit Date/Time Mar 08, 2018 at 13:07 Discharge Date/Time Mar 11, 2018 at 13:40 Discharge Diagnosis 1. R foot ulcer and cellulitis growing MRSA (sensitive to doxycycline) 2. CKD 3. HTN 4. 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 Walker is a 72 yo [place]-speaking man with history of HTN who presents with fever and foot ulcer. History taken from son at bedside. Also present was his daughter in law and non- [place] speaking . He was in his usual state of health until about 3-4 days ago when he developed a R foot blister. This gradually enlarged and ruptured creating a large open wound yesterday. He first presented to an urgent care yesterday where he was found to have a fever to 101. He was instructed to go to the ED, but was reluctant because he doesn't like hospitals. His son talked him into coming today. The patient recently traveled to the [facility] in [facility] where visited family. [place]. He was there for 2 months and returned on 02/21. On return he had mild leg edema which family attributed to the long plane flight; during this time family is sure there was no blister, ulcer, or other lesions on the feet. For the past several days the patient also has had dry cough and episodes of nighttime awakening and gasping for breath. In the ED he was afebrile, vital signs stable. Hospital Course For his foot ulcer, Dr. Coronado with podiatry was consulted. The area was debrided and a clean dressing was applied. Wound culture grew out MRSA sensitive to doxycycline; so the patient will be discharged on this for 10 days. He was given wound care supplies so family can dress the wound at home. He will be discharged on amlodipine 10mg daily. He has severe HTN. A renal US and CT abdomen was done to evaluate WES. He was found to have an obstructing R ureteral stone with massive R hydronephrosis. Dr Haas with urology was consulted, but he believes that damage to the kidney has already bee n done and removing the stones is unlikely to recover any renal function. The patient does have occasional episodes of abdominal pain classic of renal colic. For this he will get 14 tabs of [place] until he can see his primary care doctor outpatient. Home Meds Active Scripts Doxycycline Monohydrate* (Doxycycline Monohydrate*) 100 Mg Tablet, 100 MG PO BID for 10 Days, #20 TAB Prov:EDITH ASHRAF MD 03/11/18 Acetaminophen* (Tylenol*) 325 Mg Tablet, 650 MG PO Q6H PRN for PAIN LEVEL 1-3 OR FEVER, #30 TAB Prov:EDITH ASHRAF MD 03/11/18 Amlodipine Besylate* (Amlodipine Besylate*) 10 Mg Tablet, 10 MG PO DAILY, #30 TAB Prov:EDITH ASHRAF MD 03/11/18 Follow-up Plan 1. You have hypertension, which when uncontrolled increases risk of heart attack and stroke. Take amlodipine (Norvasc) daily as prescribed and see your primary care doctor in 1-2 weeks. 2. Take 10 days of doxycycline twice daily for MRSA infection of the foot. 3. You have chronic kidney disease (CKD) due to a chronic R kidney stone. You should avoid ibuprofen, naproxen, and other pain medicines called NSAIDs. Ask your primary care doctor before starting any new medicines or herbal supplements. 4. You should eat no more than 2g (2000 mg) of sodium per day. 5. For worsening abdominal pain not controlled by tylenol, return to the emergency room. Primary Care Provider Care Physician No Primary Time spent on discharge: > 30 minutes Pending Labs Laboratory Tests Test 03/11/18 05:15 White Blood Count 5.0 10^3/ul (4.8-10.8) Red Blood Count 5.07 10^6/ul (4.70-6.10) Hemoglobin 9.6 g/dl (14.0-18.0) Hematocrit 30.8 % (42.0-52.0) Mean Corpuscular Volume 60.7 fl (82.0-101.0) Mean Corpuscular Hemoglobin 18.9 pg (29.0-33.0) Mean Corpuscular Hemoglobin Concent 31.2 g/dl (32.0-37.0) Red Cell Distribution Width 16.6 % (11.5-14.5) Platelet Count 321 10^3/UL (140-415) Mean Platelet Volume 10.3 fl (7.4-10.4) Immature Granulocytes % 0.200 % (0.001-0.429) Neutrophils % 53.5 % (39.0-77.0) Lymphocytes % 25.7 % (15.0-51.0) Monocytes % 9.0 % (0.0-11.0) Eosinophils % 10.4 % (0.0-7.0) Basophils % 1.2 % (0.0-2.0) Nucleated Red Blood Cells % 0.0 /100WBC (0.0-0.0) Immature Granulocytes # 0.010 10^3/ul (0.0-0.031) Neutrophils # 2.7 10^3/ul (1.6-7.5) Lymphocytes # 1.3 10^3/ul (0.8-2.9) Monocytes # 0.5 10^3/ul (0.3-0.9) Eosinophils # 0.5 10^3/ul (0.0-0.5) Basophils # 0.1 10^3/ul (0.0-0.1) Nucleated Red Blood Cells # 0.0 10^3/ul (0.0-0.0) Sodium Level 139 mmol/L (135-144) Potassium Level 4.3 mmol/L (3.5-5.1) Chloride Level 109 mmol/L (97-110) Carbon Dioxide Level 22 mmol/L (21-31) Anion Gap 8 (5-13) Blood Urea Nitrogen 11 mg/dl (7-20) Creatinine 1.76 mg/dl (0.61-1.24) Est Glomerular Filtrat Rate mL/min mL/min (>60) Glucose Level 94 mg/dl (70-220) Calcium Level 8.1 mg/dl (8.4-10.2) Total Bilirubin 0.4 mg/dl (0.2-1.3) Direct Bilirubin 0.00 mg/dl (0.00-0.20) Indirect Bilirubin 0.4 mg/dl (0-1.1) Aspartate Amino Transf (AST/SGOT) 27 IU/L (15-46) Alanine Aminotransferase (ALT/SGPT) 24 IU/L (13-69) Alkaline Phosphatase 60 IU/L (42-121) Total Protein 6.0 g/dl (6.1-8.1) Albumin 3.2 g/dl (3.3-4.9) Globulin 2.80 g/dl (1.3-3.2) Albumin/Globulin Ratio 1.14 EDITH ASHRAF MD Mar 11, 2018 18:14
== END 2018-03-11 13:40 | disposition home or self-care (01) | DRG 854 ==
LOC: E/R 10:13 → 2NE 13:07
PROVIDERS: ADMIT Internal Medicine; ATTEND Internal Medicine
PROC: 0J9Q0ZZ Drainage of Right Foot Subcutaneous Tissue and Fascia, Open Approach (ICD-10-PCS; principal; 2018-03-08)
DX: A41.9 Sepsis, unspecified organism (principal); L03.115 Cellulitis of right lower limb; N17.9 Acute kidney failure, unspecified; I13.0 Hypertensive heart and chronic kidney disease with heart failure and stage 1 through stage 4 chronic kidney disease, or unspecified chronic kidney disease; N13.2 Hydronephrosis with renal and ureteral calculous obstruction; L02.611 Cutaneous abscess of right foot; N18.9 Chronic kidney disease, unspecified; I50.9 Heart failure, unspecified; L97.509 Non-pressure chronic ulcer of other part of unspecified foot with unspecified severity; B95.62 Methicillin resistant Staphylococcus aureus infection as the cause of diseases classified elsewhere
CPT/HCPCS: 36415; 71045; 73630; 74176; 76775; 80053; 81001; 81003; 82043; 82728; 83036; 83540; 83605; 83690; 83735; 83880; 84100; 84155; 84300; 84484; 85025; 85610; 85730; 87040; 87070; 87086; 90686; 93005; 93306; 96365; 96366; 96375; J1644; J2405; J2543; J3370; J7030